=== PATIENT | female | born 1980 | race American Indian/Alaskan Native ===

== ENCOUNTER 2017-10-02 20:41 | Emergency (ER) | payer BC ==
[2017-10-02 20:56] VITALS: BP 135/85; PULSE 87; RESP 16; TEMP 98; O2SAT 100; BMI 36.3
--- NOTE | 2017-10-02 21:23 | ED PDOC ---
Arrival/HPI - General Chief Complaint: Female Genitourinary Time Seen by Provider: 10/02/17 21:00 Historian: Patient - History of Present Illness Narrative History of Present Illness (Text): 10/02/17 21:15 This 36 yo female , Gravid 22 weeks, presents to this ED with her c/ o urinary frequency, urgency, dysuria, and hematuria x 1 day. On the contrary of triage note, patient denies vaginal spotting. Patient denies fever, sob, cp , abdominal pain, pelvic pain, vaginal discharge, rash, dizziness, rectal bleeding, constipation, or abnormal gait. Patient stated her baby is moving normally. 10/02/17 21:57 Time/Duration: Other (1 day) Context: Home Past Medical History - Provider Review Nursing Documentation Reviewed: Yes - Infectious Disease Hx of Infectious Diseases: None - Tetanus Immunization Tetanus Immunization: Unknown - Cardiac Hx Cardiac Disorders: No - Pulmonary Hx Respiratory Disorders: No - Neurological Hx Neurological Disorder: No Hx Dizziness: Yes Other/Comment: pseudo tumor cerebral intracranial hypertension - HEENT Hx HEENT Disorder: Yes Other/Comment: TINNITUS X 10 YRS - Renal Hx Renal Disorder: No - Endocrine/Metabolic Hx Endocrine Disorders: No - Hematological/Oncological Hx Blood Disorders: Yes Hx Anemia: Yes (IRON INFUSION) - Integumentary Hx Dermatological Disorder: No - Musculoskeletal/Rheumatological Hx Musculoskeletal Disorders: No Hx Falls: No - Gastrointestinal Hx Gastrointestinal Disorders: No - Genitourinary/Gynecological Hx Genitourinary Disorders: No Other/Comment: endometriosis,BREAST REDUCTION - Psychiatric Hx Psychophysiologic Disorder: No Hx Substance Use: No - Surgical History Other/Comment: breast reduction. fenestration optic nerve sheath - Anesthesia Hx Anesthesia: Yes Hx Anesthesia Reactions: No Hx Malignant Hyperthermia: No Family/Social History - Physician Review Nursing Documentation Reviewed: Yes Family/Social History: Other (noncontributory) Smoking Status: Never Smoked Hx Alcohol Use: No Hx Substance Use: No Allergies/Home Meds Allergies/Adverse Reactions: Allergies Penicillins Allergy (Verified 01/19/16 12:57) PAIN Home Medications: Home Meds Medication Instructions Recorded Confirmed [place] 1 pkt PO DAILY PRN 01/19/16 01/19/16 Diamox 250 mg Tab 500 mg PO HS 01/19/16 01/19/16 Vitamin D 50,000 units PO QWK 01/19/16 01/19/16 Review of Systems - Review of Systems Constitutional: Normal. absent: Fatigue, Weight Change, Fevers Eyes: Normal ENT: Normal Respiratory: Normal Cardiovascular: Normal Gastrointestinal: Normal Genitourinary Female: Dysuria, Frequency, Hematuria. absent: Vaginal Bleeding, Vaginal Discharge Musculoskeletal: Normal Skin: Normal. absent: Rash Neurological: Normal. absent: Headache, Dizziness Endocrine: Normal Hemo/Lymphatic: Normal Psychiatric: Normal Physical Exam Vital Signs Temp Pulse Resp BP Pulse Ox 10/02/17 20:55 98 F 87 16 135/85 100 Temperature: Afebrile Blood Pressure: Normal Pulse: Regular Respiratory Rate: Normal Appearance: Positive for: Well-Appearing, Non-Toxic, Comfortable Pain Distress: None Mental Status: Positive for: Alert and Oriented X 3 - Systems Exam Head: Present: Atraumatic, Normocephalic Pupils: Present: PERRL Extroacular Muscles: Present: EOMI Conjunctiva: Present: Normal Mouth: Present: Moist Mucous Membranes Neck: Present: Normal Range of Motion Respiratory/Chest: Present: Clear to Auscultation, Good Air Exchange. No: Respiratory Distress, Accessory Muscle Use Cardiovascular: Present: Regular Rate and Rhythm, Normal S1, S2. No: Murmurs Abdomen: Present: Normal Bowel Sounds. No: Tenderness, Distention, Peritoneal Signs, Rebound, Guarding Genitourinary/Pelvic Exam: Present: Other (deferred by patient) Back: Present: Normal Inspection. No: CVA Tenderness Upper Extremity: Present: Normal Inspection, Normal ROM, NORMAL PULSES, Neurovascularly Intact, Capillary Refill < 2s. No: Cyanosis, Edema Lower Extremity: Present: Normal Inspection, NORMAL PULSES, Normal ROM, Neurovascularly Intact, Capillary Refill < 2 s. No: Edema, CALF TENDERNESS Neurological: Present: GCS=15, CN II-XII Intact, Speech Normal, Motor Func Grossly Intact, Normal Sensory Function, Normal Cerebellar Funct, Gait Normal Skin: Present: Warm, Dry, Normal Color. No: Rashes Psychiatric: Present: Alert, Oriented x 3 Medical Decision Making ED Course and Treatment: 10/02/17 22:42 Re-evaluation. Patient feels better. Discussed results and plan with patient who expresses understanding. All questions answered and there is agreement with the plan to discharge home with instructions. Patient stable for discharge. Return if symptoms persist or worsen. Patient was recommended to f/u [facility]ST[facility] SEWING MACHINE OPERATOR in 2-3 days to review urine culture, return to emergency if symptoms worsen or persist, or fever or pelvic pain Re-evaluation Time: 22:42 Reassessment Condition: Re-examined, Improved - Lab Interpretations Lab Results: Lab Results 10/02/17 21:50: Urine Color Yellow, Urine Appearance Slight-cloudy, Urine pH 6.0 , Ur Specific [place] <= 1.005, Urine Protein Trace H, Urine Glucose (UA) Negative, Urine Ketones Negative, Urine Blood Large H, Urine Nitrate Negative, Urine Bilirubin Negative, Urine Urobilinogen 0.2, Ur Leukocyte Esterase Trace H , Urine RBC 10 - 15, Urine WBC 0 - 2, Ur Epithelial Cells 1 - 3 I have reviewed the lab results: Yes Interpretation: Abnormal lab values (UTI) - Medication Orders Current Medication Orders: Discontinued Medications Nitrofurantoin Macrocrystals (Macrobid) 100 mg PO STAT STA Stop: 10/02/17 21:25 Last Admin: 10/02/17 21:48 Dose: 100 mg Disposition/Present on Arrival - Present on Arrival Any Indicators Present on Arrival: No History of DVT/PE: No History of Uncontrolled Diabetes: No Urinary Catheter: No History of Decub. Ulcer: No History Surgical Site Infection Following: None - Disposition Have Diagnosis and Disposition been Completed?: Yes Diagnosis: Acute cystitis during Disposition: HOME/ ROUTINE Disposition Time: 22:43 Patient Plan: Discharge Patient Problems: Current Active Problems Problem Status Onset Acute cystitis during Acute Condition: GOOD Discharge Instructions (ExitCare): Urinary Tract Infection in (ED) Additional Instructions: Call private [facility] SEWING MACHINE OPERATOR doctor for follow up visit in 1-2 days. Take medication as instructed. Review urine culture result with your doctor in 2-3 days. drink enough fluids, and rest. Return to emergency if symptoms worsen, pelvic pain, fever Prescriptions: Nitrofurantoin Macrocrystals [Macrobid] 100 mg PO BID #10 cap Forms: [employer] ([place]), WORK NOTE
[2017-10-02 22:01] LABS: URINE BILIRUBIN NEGATIVE (NEGATIVE); URINE BLOOD LARGE (NEGATIVE); URINE GLUCOSE (UA) NEGATIVE (NEGATIVE); URINE KETONE NEGATIVE (NEGATIVE); URINE LEUKOCYTE ESTERASE TRACE Leu/uL (NEGATIVE); URINE PROTEIN TRACE mg/dL (<30 mg/dL); URINE UROBILINOGEN 0.2 E.U./dL (<1 E.U./dL)
[2017-10-02 22:10] LABS: URINE APPEARANCE SLIGHT-CLOUDY (CLEAR); URINE COLOR YELLOW (YELLOW)
[2017-10-02 22:12] LABS: URINE WBC 0 - 2 /hpf (0-6)
== END 2017-10-02 22:54 | disposition home or self-care (01) ==
LOC: ED 20:41
DX: O23.12 Infections of bladder in pregnancy, second trimester (principal); Z3A.22 22 weeks gestation of pregnancy

== ENCOUNTER 2019-02-15 23:49 | Emergency (ER) | payer BC ==
[2019-02-16 00:02] VITALS: BMI 38.7
[2019-02-16 00:10] VITALS: RESP 16; TEMP 98.1
[2019-02-16] MEDS ORDERED: Sodium Chloride 0.9% 1,000 ML IV STA (00:20)
--- NOTE | 2019-02-16 00:25 | ED PDOC ---
Arrival/HPI - General Historian: Patient - History of Present Illness Narrative History of Present Illness (Text): 02/16/19 00:20 A 38 year old female, whose past medical history includes pseudotumor cerebri and migraines, presents to the ED for further evaluation of symptoms that occurred after drinking "old water" out of a water bottle in her house. The patient reports that her symptoms began yesterday morning at 9 AM after she was cleaning her house and drank a bottle of "old water". Patient notes that she became dizzy IMMEDIATELY after drinking it and since then has been feeling fatigued. Pt states she was all feeling like her heart was racing. She reports that she called poison control, and they told her that a bottle of old water would not cause such symptoms, and advised her to get medical evaluation. Patient notes that she did not come into the ED immediately because she had an event during the day. The patient notes that the dizziness has resolved, but currently complains of a migraine headache. Pt states she has a hx of migraines and this feels like her typical migraine. pt states the onset was gradual and located over the frontal area. throbbing in nature. The patient denies fevers, chills, chest pain, shortness of breath, dyspnea on exertion, cough, abdominal pain, nausea, vomiting, diarrhea, back pain, neck pain, urinary/bowel changes, or any other complaint. Time/Duration: Other (9 Am yesterday) Symptom Onset: Sudden Symptom Course: Unchanged Activities at Onset: Rest, Light Context: Home <Shahrzad Billy - Last Filed: 02/16/19 01:42> <Juwan Mccain - Last Filed: 02/16/19 02:01> - General Chief Complaint: Headache Time Seen by Provider: 02/15/19 23:57 Past Medical History - Provider Review Nursing Documentation Reviewed: Yes - Travel History Have you recently traveled outside [place] w/in the past 3 mons?: No - Infectious Disease Hx of Infectious Diseases: None - Tetanus Immunization Tetanus Immunization: Unknown - Cardiac Hx Cardiac Disorders: No - Pulmonary Hx Respiratory Disorders: No - Neurological Hx Neurological Disorder: Yes Hx Dizziness: Yes Hx Migraine: Yes Other/Comment: PT. REPORTS "IT'S BEEN RULED OUT-THE PSEUDOTUMOR CEREBRI- I HAVE MIGRAINES" - HEENT Hx HEENT Disorder: Yes Other/Comment: HX: SURGERY-"OPTIC SHEATH FOR LEFT EYE" - Renal Hx Renal Disorder: No - Endocrine/Metabolic Hx Endocrine Disorders: No - Hematological/Oncological Hx Blood Disorders: Yes Hx Anemia: Yes (IRON INFUSION) Hx Sickle Cell Trait: Yes - Integumentary Hx Dermatological Disorder: No - Musculoskeletal/Rheumatological Hx Musculoskeletal Disorders: Yes Hx Falls: No Other/Comment: HX: UMBILICAL HERNIA - Gastrointestinal Hx Gastrointestinal Disorders: Yes Other/Comment: HX: LAP BAND - Genitourinary/Gynecological Hx Genitourinary Disorders: Yes Other/Comment: HX: SUBMUCOUS LEIOMYOMA OF UTERUS; BARTHOLIN CYST - Psychiatric Hx Psychophysiologic Disorder: No Hx Depression: No Hx Substance Use: No - Surgical History Hx Dilation and Curettage: Yes Hx Eye Surgery: Yes (OPTIC SHEATH LEFT EYE) Other/Comment: HX: BREAST REDUCTION. HX: LAP BAND PLACEMENT. HX: ICP MONITOR PLACED 2002 AND REMOVED 2003-PSEUDOTUMOR CEREBI RULED OUT ALSO - Anesthesia Hx Anesthesia: Yes Hx Anesthesia Reactions: No Hx Malignant Hyperthermia: No <Shahrzad Billy - Last Filed: 02/16/19 01:42> Family/Social History - Physician Review Nursing Documentation Reviewed: Yes Family/Social History: No Known Family HX Smoking Status: Never Smoked Hx Alcohol Use: No Hx Substance Use: No <Shahrzad Billy - Last Filed: 02/16/19 01:42> Allergies/Home Meds <Shahrzad Billy - Last Filed: 02/16/19 01:42> <Juwan Mccain - Last Filed: 02/16/19 02:01> Allergies/Adverse Reactions: Allergies Penicillins Allergy (Severe, Verified 02/16/19 00:02) RASH Home Medications: Home Meds Medication Instructions Recorded Confirmed acetaZOLAMIDE [Diamox 250 mg Tab] 250 mg PO HS 05/16/18 05/16/18 Review of Systems - Physician Review All systems were reviewed & negative as marked: Yes - Review of Systems Constitutional: Fatigue. absent: Fevers Respiratory: absent: SOB, Cough Cardiovascular: Palpitations. absent: Chest Pain, [place], Orthopnea, Syncope Gastrointestinal: absent: Abdominal Pain, Stool Changes, Diarrhea, Nausea, Vomiting Genitourinary Female: absent: Dysuria, Frequency, Urine Output Changes Musculoskeletal: absent: Arthralgias, Back Pain, Neck Pain Skin: absent: Rash, Pruritis Neurological: Headache, Dizziness (resolved). absent: Focal Weakness, Gait Changes Psychiatric: absent: Anxiety, Depression, Suicidal Ideation <Shahrzad Billy - Last Filed: 02/16/19 01:42> Physical Exam Vital Signs Reviewed: Yes Vital Signs Temp Pulse Resp BP Pulse Ox 02/16/19 00:10 98.1 F 76 16 100 02/16/19 00:07 98 H 20 139/83 99 Temperature: Afebrile Blood Pressure: Normal Pulse: Regular Respiratory Rate: Normal Appearance: Positive for: Well-Appearing, Non-Toxic, Comfortable Pain Distress: None Mental Status: Positive for: Alert and Oriented X 3 - Systems Exam Head: Present: Atraumatic, Normocephalic Extroacular Muscles: Present: EOMI Conjunctiva: Present: Normal Mouth: Present: Moist Mucous Membranes Nose (External): Present: Atraumatic Neck: Present: Normal Range of Motion Respiratory/Chest: Present: Clear to Auscultation, Good Air Exchange. No: Respiratory Distress, Accessory Muscle Use Cardiovascular: Present: Regular Rate and Rhythm, Normal S1, S2. No: Murmurs Abdomen: No: Tenderness, Distention, Peritoneal Signs, Rebound, Guarding Back: Present: Normal Inspection Upper Extremity: Present: Normal Inspection. No: Cyanosis, Edema Lower Extremity: Present: Normal Inspection. No: Edema Neurological: Present: GCS=15, Speech Normal, Motor Func Grossly Intact Skin: Present: Warm, Dry, Normal Color. No: Rashes Psychiatric: Present: Alert, Oriented x 3 <Shahrzad Billy - Last Filed: 02/16/19 01:42> Vital Signs Temp Pulse Resp BP Pulse Ox 02/16/19 00:10 98.1 F 76 16 100 02/16/19 00:07 98 H 20 139/83 99 <Juwan Mccain - Last Filed: 02/16/19 02:01> Medical Decision Making ED Course and Treatment: 02/16/19 00:25 Impression: A 38 year old female presents to the ED for further evaluation of headache s/p drinking an old bottle of water. Plan: -- Head CT -- EKG -- Chest X-ray -- Labs -- Toradol, Reglan, and IV Fluids -- Reassess and disposition Prior Visits: Notes and results from previous visits were reviewed. Progress Notes: 02/16/19 01:16 cbc; wnl cmp; wnl trop; wnl ekg; NSR at 76b/m no st elevations. cxr; wnl head ct; Normal size of the ventricles and extra-axial spaces for the patient's age. Normal white matter tracts of the supratentorial brain. Normal basal ganglia and thalami. Normal brainstem. Normal cerebellum. There is no demonstrated extra-axial, intraparenchymal, or intraventricular hemorrhage. There are no findings of an acute ischemic infarction. Normal calvarium. There is no demonstrated fracture. Normal soft tissue structures. Normal visualized paranasal sinuses. IMPRESSION: Normal unenhanced CT scan of the brain. Electronically signed on Feb 16, 2019 1:43:27 AM EDT by: Barrie Camarillo M.D., Certified by ABR, MSK, Neuroradiology pt reassessment; after toradol and reglan and NS iv bolus. pt was sleeping in the er; i woke patient up; pt is feeling better. vitals stable. pt states headache has completely resolved. all results discussed with patient in depth; she was advised to f/u with PMD tomorrow. pt was advised immediate return if symptoms worsen,persist or if new symptoms develop Patient verbalizes understanding of discharge instructions and need for imme diate followup. All aspects of this case were discussed the attending of record. Impression: Headache Tylenol every 4 hours as needed for pain Increase fluids Follow-up with primary care physician within the next 2 days Follow-up with the neurologist within the next 2 days Return immediately if symptoms worsen persist or if new concerning symptoms develop Reassessment Condition: Re-examined, Improved - Lab Interpretations I have reviewed the lab results: Yes - EKG Interpretation Interpreted by ED Physician: Yes Type: 12 lead EKG <Shahrzad Billy T - Last Filed: 02/16/19 01:42> - Lab Interpretations Lab Results: Troponin I < 0.01 ng/mL 02/16/19 00:35 Total Bilirubin 0.4 mg/dL (0.2-1.3) 02/16/19 00:35 AST 26 U/L (14-36) 02/16/19 00:35 ALT 12 U/L (7-56) 02/16/19 00:35 Alkaline Phosphatase 57 U/L (38-126) 02/16/19 00:35 Total Protein 6.5 g/dL (5.8-8.3) 02/16/19 00:35 Albumin 3.7 g/dL (3.0-4.8) 02/16/19 00:35 Globulin 2.8 gm/dL 02/16/19 00:35 Albumin/Globulin Ratio 1.3 (1.1-1.8) 02/16/19 00:35 - RAD Interpretation Radiology Orders: 02/16/19 00:19 HEAD W/O CONTRAST [CT] Stat CHEST PORTABLE [RAD] Stat - Medication Orders Current Medication Orders: Discontinued Medications Sodium Chloride (Sodium Chloride 0.9%) 1,000 mls @ 999 mls/hr IV .Q1H1M STA Stop: 02/16/19 01:20 Last Admin: 02/16/19 00:45 Dose: 999 mls/hr eMAR Start Stop Document 02/16/19 00:45 CNR (Rec: 02/16/19 00:46 CNR [place] [id number]) Intravenous Solution Start Date 02/16/19 Start Time 00:46 End Date 02/16/19 End time 01:46 Total Infusion Time 60 Ketorolac Tromethamine (Toradol) 30 mg IVP STAT STA Stop: 02/16/19 00:21 Last Admin: 02/16/19 00:46 Dose: 30 mg MAR Pain Assessment Document 02/16/19 00:46 CNR (Rec: 02/16/19 00:46 CNR [place] [id number]) Pain Reassessment Is this a pain reassessment? No IVP Administration Document 02/16/19 00:46 CNR (Rec: 02/16/19 00:46 CNR [place] [id number]) Charges for Administration # of IVP Administrations 1 Metoclopramide HCl (Reglan) 10 mg IVP STAT STA Stop: 02/16/19 00:21 Last Admin: 02/16/19 00:46 Dose: 10 mg IVP Administration Document 02/16/19 00:46 CNR (Rec: 02/16/19 00:46 CNR [place] [id number]) Charges for Administration # of IVP Administrations 1 <Juwan Mccain - Last Filed: 02/16/19 02:01> - Scribe Statement The provider has reviewed the documentation as recorded by the Scribe Alicja Hudson Provider Scribe Attestation: All medical record entries made by the Scribe were at my direction and personally dictated by me. I have reviewed the chart and agree that the record accurately reflects my personal performance of the history, physical exam, medical decision making, and the department course for this patient. I have also personally directed, reviewed, and agree with the discharge instructions and disposition. <Shahrzad Billy - Last Filed: 02/16/19 01:42> - PA / CARBIDE GRINDER / Resident Statement / has reviewed & agrees with the documentation as recorded. <Juwan Mccain - Last Filed: 02/16/19 02:01> Disposition/Present on Arrival - Present on Arrival Any Indicators Present on Arrival: No History of DVT/PE: No History of Uncontrolled Diabetes: No Urinary Catheter: No History of Decub. Ulcer: No History Surgical Site Infection Following: None - Disposition Have Diagnosis and Disposition been Completed?: Yes Disposition Time: 01:18 Patient Plan: Discharge <Shahrzad Billy - Last Filed: 02/16/19 01:42> <Juwan Mccain - Last Filed: 02/16/19 02:01> - Disposition Diagnosis: Headache Disposition: HOME/ ROUTINE Patient Problems: Current Active Problems Problem Status Onset Headache Acute Condition: GOOD Discharge Instructions (ExitCare): Headache, Adult (DC) Additional Instructions: Tylenol every 4 hours as needed for pain Increase fluids Follow-up with primary care physician within the next 2 days Follow-up with the neurologist within the next 2 days Return immediately if symptoms worsen persist or if new concerning symptoms develop Referrals: Essie Morgan MD [Medical Doctor] - Follow up with primary Solomon Gudino MD [Staff Provider] - Follow up with primary [facility] [Outside] - Follow up with primary Forms: [email or web address] ([place]), WORK NOTE
[2019-02-16 00:50] LABS: BASO # 0.08 K/mm3 (0.0-2.0); BASO % 0.9 % (0.0-3.0); EOS # 0.2 (0.0-0.7); EOS % 2.1 % (1.5-5.0); HEMOGLOBIN 11.1 g/dL (12.0-16.0); LYMPH # 3.3 (1.2-3.4); LYMPH % 38.6 % (22.0-35.0); MEAN CELL VOLUME 98.8 fl (80.0-105.0); MEAN CORPUSCULAR HEMOGLOBIN 32.8 pg (25.0-35.0); MEAN CORPUSCULAR HGB CONC 33.2 g/dl (31.0-37.0); MEAN PLATELET VOLUME 10.6 fl (7.0-11.0); MONO # 0.6 (0.1-0.6); MONO % 6.9 % (1.0-6.0); RBC 3.38 10^6/uL (3.5-6.1); RED CELL DISTRIBUTION WIDTH 12.9 % (11.5-14.5); WHITE BLOOD COUNT 8.6 10^3/uL (4.5-11.0)
[2019-02-16 00:59] LABS: ALB/GLOB RATIO 1.3 (1.1-1.8); ALBUMIN 3.7 g/dL (3.0-4.8); ALT/SGPT 12 U/L (7-56); AST/SGOT 26 U/L (14-36); BLOOD UREA NITROGEN 11 mg/dL (7-21); CALCIUM 9.1 mg/dL (8.4-10.5); GFR NON-AFRICAN AMERICAN > 60
[2019-02-16 01:16] LABS: TROPONIN I < 0.01 ng/mL
[2019-02-16 02:04] VITALS: BP 136/78; PULSE 82; O2SAT 99
--- NOTE | 2019-02-16 08:47 | RAD ---
HISTORY: fatigue COMPARISON: None available. TECHNIQUE: Chest, one view. FINDINGS: Examination limited by habitus. LUNGS: No focal consolidation. Please note that chest x-ray has limited sensitivity for the detection of pulmonary masses. PLEURA: No significant pleural effusion identified. No definite pneumothorax . CARDIOVASCULAR: The cardiomediastinal silhouette appears within normal limits of size. No significant atherosclerotic calcification present. OSSEOUS STRUCTURES: No acute osseous abnormality identified. VISUALIZED UPPER ABDOMEN: Unremarkable. OTHER FINDINGS: None. IMPRESSION: No focal consolidation.
--- NOTE | 2019-02-16 09:16 | CT ---
Date of service: 02/16/2019 PROCEDURE: CT HEAD WITHOUT CONTRAST. HISTORY: headache. hx of migranes COMPARISON: None available. TECHNIQUE: Axial computed tomography images were obtained through the head/brain without intravenous contrast. Radiation dose: Total exam DLP = 972.08 mGy-cm. This CT exam was performed using one or more of the following dose reduction techniques: Automated exposure control, adjustment of the mA and/or kV according to patient size, and/or use of iterative reconstruction technique. FINDINGS: Streak artifact limits evaluation of the skull base. HEMORRHAGE: No intracranial hemorrhage. BRAIN: No mass effect or edema. Lee-white matter differentiation appears intact. Please note that MRI with diffusion imaging is more sensitive in the detection of acute ischemic event. VENTRICLES: Cavum septum pellucidum, anatomic variant. No hydrocephalus. CALVARIUM: Unremarkable. PARANASAL SINUSES: Unremarkable as visualized. No significant inflammatory changes. MASTOID AIR CELLS: Unremarkable as visualized. No inflammatory changes. OTHER FINDINGS: None. IMPRESSION: No acute intracranial pathology identified. Preliminary impression was provided by [employer].
--- NOTE | 2019-02-16 20:40 | CARD ---
APPROVED REPORT Date of service: 02/16/2019 EKG Measurement Heart [id number] NM [id number] <Conclusion> Normal sinus rhythm Possible Left atrial enlargement Borderline ECG
== END 2019-02-16 02:03 | disposition home or self-care (01) ==
LOC: ED 23:49
DX: R51 Headache (principal); D57.3 Sickle-cell trait
CPT/HCPCS: 70450; 71045; 80053; 81025; 82550; 83615; 84484; 85025; 93005; 96361; 96374; 96375; 99285; J1885; J2765; J7030